=== PATIENT | female | born 1990 | race African-American/Black ===

== ENCOUNTER 2017-10-06 11:21 | Emergency (ER) | payer MEDICAID ==
[~2017-10-06] VITALS: Ht 157.5 cm; Wt 51.7 kg
[~2017-10-06 11:21] MED LIST: IRONTAB35 OR; PREN-96 OR
[2017-10-06 12:16] LABS: Basophils # (auto) 0 uL; Basophils % (auto) 0.4 % (0.0-2.0); Eosinophils # (auto) 0 uL; Eosinophils % (auto) 0.6 % (0.0-7.0); Hematocrit 36.5 % (36.0-46.0); Hemoglobin 12.3 g/dL (12.2-16.2); Lymphocytes # (auto) 1.3 uL; Lymphocytes % (auto) 17.3 % (10.0-50.0); Mean Corpuscular Hemoglobin 33.7 pg (28.0-32.0); Mean Corpuscular Hgb Conc. 33.7 g/dL (32.0-36.0); Mean Corpuscular Volume 100.1 fL (80.0-100.0); Monocytes # (auto) 0.4 uL; Monocytes % (auto) 5.4 % (0.0-12.0); Neutrophils # (auto) 5.6 uL; Neutrophils % (auto) 76.3 % (37.0-80.0); Nucleated Red Blood Cells % 0.2 %; Platelet Count (auto) 255 10^3/uL (140-450); Red Blood Cells 3.65 10^6/uL (4.0-5.20); Red Cell Distribution Width 13.2 % (11.8-14.3); White Blood Cell 7.3 10^3/uL (4.4-10.8)
[2017-10-06 12:42] LABS: Calcium 9.1 mg/dL (8.5-10.1); Potassium 3.6 mmol/L (3.5-5.1)
[2017-10-06 12:48] LABS: Urine Bacteria NONE SEEN /hpf (None Seen); Urine Blood Negative /uL (Negative); Urine Mucus FEW (None Seen); Urine Specific Gravity 1.032 (1.001-1.035); Urine WBC <1 /hpf (0 - 5)
[2017-10-06 12:51] LABS: Bilirubin, Total 0.4 mg/dL (0.2-1.0); Total Protein 7.5 g/dL (6.4-8.2)
[2017-10-06 13:12] VITALS: BP 107/71
== END 2017-10-06 13:26 | disposition home or self-care (01) ==
LOC: ER 11:21
DX: R10.32 Left lower quadrant pain (principal); R10.31 Right lower quadrant pain; R42 Dizziness and giddiness
CPT/HCPCS: 36415; 80053; 81001; 81025; 85025

== ENCOUNTER 2017-10-09 18:37 | Emergency (ER) | payer MEDICAID ==
[~2017-10-09] VITALS: Ht 157.5 cm; Wt 53.5 kg
[2017-10-09] MEDS ORDERED: IOHEXOL 300 MG/ML 100ML BOTTLE IJ ONE (18:57)
[2017-10-09 19:08] LABS: Basophils # (auto) 0 uL; Basophils % (auto) 0.7 % (0.0-2.0); Eosinophils # (auto) 0.1 uL; Lymphocytes # (auto) 2.6 uL; Neutrophils # (auto) 1.6 uL; White Blood Cell 4.7 10^3/uL (4.4-10.8)
[2017-10-09 19:11] LABS: Eosinophils % (auto) 2.1 % (0.0-7.0); Hematocrit 36.5 % (36.0-46.0); Hemoglobin 12.3 g/dL (12.2-16.2); Mean Corpuscular Hgb Conc. 33.6 g/dL (32.0-36.0); Mean Corpuscular Volume 101.2 fL (80.0-100.0); Monocytes # (auto) 0.3 uL; Monocytes % (auto) 7.2 % (0.0-12.0); Neutrophils % (auto) 34.8 % (37.0-80.0); Nucleated Red Blood Cells % 0.3 %; Platelet Count (auto) 272 10^3/uL (140-450); Red Cell Distribution Width 13.5 % (11.8-14.3)
[2017-10-09 19:17] LABS: Lymphocytes % (auto) 55.2 % (10.0-50.0)
[2017-10-09 19:27] LABS: Albumin 3.9 g/dL (3.4-5.0); BUN/Creatinine Ratio 26.2; Calcium 8.9 mg/dL (8.5-10.1); Potassium 3.9 mmol/L (3.5-5.1)
[2017-10-09 19:30] LABS: Bilirubin, Total 0.2 mg/dL (0.2-1.0); Total Protein 7.5 g/dL (6.4-8.2)
[2017-10-09 20:06] VITALS: BP 111/74
== END 2017-10-10 00:08 | disposition home or self-care (01) ==
LOC: ER 18:37
DX: R10.84 Generalized abdominal pain (principal); N93.9 Abnormal uterine and vaginal bleeding, unspecified
CPT/HCPCS: 36415; 74177; 80053; 85025; 99285; Q9967

== ENCOUNTER 2020-06-28 09:08 | Observation (INO) | payer MEDICAID ==
[~2020-06-28] VITALS: Ht 188 cm; Wt 70.3 kg
[2020-06-28] MEDS ORDERED: TERBUTALINE SULFATE 1 MG/ML 1ML VIAL SC SCH (10:15)
== END 2020-06-28 11:25 | disposition home or self-care (01) ==
LOC: LDRP 09:08
PROVIDERS: ADMIT Obstetrics & Gynecology; ATTEND Obstetrics & Gynecology
DX: O60.03 Preterm labor without delivery, third trimester (principal); Z3A.36 36 weeks gestation of pregnancy
CPT/HCPCS: 59025; 81002; 96372; G0378; J3105

== ENCOUNTER 2020-07-03 22:33 | Observation (INO) | payer MEDICAID ==
[~2020-07-03] VITALS: Ht 157.5 cm; Wt 72.6 kg
[2020-07-05] MEDS ORDERED: CEPH-37 PO (10:05)
== END 2020-07-04 00:15 | disposition home or self-care (01) ==
LOC: LDRP 22:33
PROVIDERS: ADMIT Obstetrics & Gynecology; ATTEND Obstetrics & Gynecology
DX: O62.9 Abnormality of forces of labor, unspecified (principal); O34.219 Maternal care for unspecified type scar from previous cesarean delivery; Z3A.37 37 weeks gestation of pregnancy
CPT/HCPCS: 59025; 81002; 96360; 96361; G0378

== ENCOUNTER 2020-07-05 09:43 | Observation (INO) | payer MEDICAID ==
[2020-07-05] MEDS ORDERED: CEPH-37 PO (10:05)
[2020-07-05] MEDS ORDERED: NIFEdipine 10 MG CAP PO ONE (11:00)
== END 2020-07-05 11:55 | disposition home or self-care (01) ==
LOC: LDRP 09:43
PROVIDERS: ADMIT Obstetrics & Gynecology; ATTEND Obstetrics & Gynecology
DX: O60.03 Preterm labor without delivery, third trimester (principal); O34.219 Maternal care for unspecified type scar from previous cesarean delivery; Z3A.37 37 weeks gestation of pregnancy
CPT/HCPCS: 59025; 81002; G0378

== ENCOUNTER 2020-07-10 00:35 | Inpatient (IN) | payer MEDICAID ==
[2020-07-10] VITALS (24 sets, daily range): BP systolic 65–147; BP diastolic 43–66
[~2020-07-10] VITALS: Ht 157.5 cm; Wt 72.6 kg
[~2020-07-10 00:35] MED LIST changes: +CEPH-37 PO
[2020-07-10] MEDS ORDERED: TERBUTALINE SULFATE 1 MG/ML 1ML VIAL SC ONE (00:58)
[2020-07-10] MEDS ORDERED: TERBUTALINE SULFATE 1 MG/ML 1ML VIAL SC SCH (01:00)
[2020-07-10] MEDS ORDERED: LACTATED RINGER'S 1,000 ML IV ONE ×2 (01:15→10:45)
[2020-07-10 02:10] LABS: Albumin 2.5 g/dL (3.4-5.0); BUN/Creatinine Ratio 15.3; Calcium 8.1 mg/dL (8.5-10.1); Potassium 3.2 mmol/L (3.5-5.1)
[2020-07-10 02:13] LABS: Bilirubin, Total 0.2 mg/dL (0.2-1.0); Total Protein 6.2 g/dL (6.4-8.2)
[2020-07-10 02:29] LABS: Basophils # (auto) 0 10 ^3/uL (0-0.2); Basophils % (auto) 0.1 % (0.0-2.0); Eosinophils # (auto) 0 10 ^3/uL (0-0.8); Eosinophils % (auto) 0.4 % (0.0-7.0); Hematocrit 32.2 % (36.0-46.0); Hemoglobin 10.4 g/dL (12.2-16.2); Lymphocytes # (auto) 2.6 10 ^3/uL (0.4-5.4); Lymphocytes % (auto) 36.8 % (10.0-50.0); Mean Corpuscular Hemoglobin 28.8 pg (28.0-32.0); Mean Corpuscular Hgb Conc. 32.4 g/dL (32.0-36.0); Mean Corpuscular Volume 88.8 fL (80.0-100.0); Monocytes # (auto) 0.5 10 ^3/uL (0-1.3); Monocytes % (auto) 7.6 % (0.0-12.0); Neutrophils # (auto) 3.8 10 ^3/uL (1.6-8.6); Neutrophils % (auto) 55.1 % (37.0-80.0); Nucleated Red Blood Cells % 0.1 %; Platelet Count (auto) 207 10^3/uL (140-450); Red Blood Cells 3.63 10^6/uL (4.0-5.20); Red Cell Distribution Width 15.7 % (11.8-14.3)
[2020-07-10 02:44] LABS: INR 0.91 (0.9-1.15); Partial Thromboplastin Time 23.6 sec (23.0-31.2)
[2020-07-10 03:54] LABS: Urine Bacteria FEW /hpf (None Seen); Urine Blood Negative /uL (Negative); Urine Mucus FEW (None Seen); Urine Specific Gravity 1.008 (1.001-1.035); Urine WBC 1 /hpf (0 - 5)
[2020-07-10] MEDS ORDERED: ceFAZolin 1GM/50ML 50 ML IV ONE (04:00)
[2020-07-10 04:11] LABS: Alcohol, Urine < 3.0 mg/dL (0-10); Amphetamine Screen, Urine NEGATIVE (NEGATIVE); Barbiturate Scree,Urine NEGATIVE (NEGATIVE); Benzodiazephine Screen, Urine NEGATIVE (NEGATIVE); Cannabinoid Screen, Urine NEGATIVE (NEGATIVE); Cocaine Screen, Urine NEGATIVE (NEGATIVE); Opiate Scree,Urine NEGATIVE (NEGATIVE); Phencyclidine Screen, Urine NEGATIVE (NEGATIVE)
[2020-07-10] MEDS ORDERED: SODIUM CITR/CITRIC ACID ORAL SOLN 30 ML PO ONE (04:15)
[2020-07-10] MEDS ORDERED: TETRACAINE 1% INJ 2 ML VIAL IJ ONE (05:36)
[2020-07-10] MEDS ORDERED: MORPHINE SULF(PF) 0.5MG/ML 10ML VIAL ONE (05:39)
[2020-07-10] MEDS ORDERED: ceFAZolin 1GM VL ONE (05:40)
[2020-07-10] MEDS ORDERED: ONDANSETRON HCL 4 MG/2 ML VIAL ONE ×2 (05:40→07:00)
[2020-07-10] MEDS ORDERED: GLYCOPYRROLATE 0.2 MG/ML 1ML VIAL ONE (05:40)
[2020-07-10] MEDS ORDERED: ePHEDrine SULFATE 50 MG/ML AMP ONE (05:40)
[2020-07-10] MEDS ORDERED: oxyTOCIN 10 UNIT/ML 10ML VIAL ONE (05:40)
[2020-07-10] MEDS ORDERED: fentaNYL CITRATE 100 MCG/2 ML VL ONE (05:40)
[2020-07-10] MEDS ORDERED: KETOROLAC TROMETH 30 MG/ML 1ML VIAL ONE (05:40)
[2020-07-10] MEDS ORDERED: PHENYLEPHRINE HCL 10 MG/ML VL ONE (05:40)
[2020-07-10] MEDS ORDERED: NALOXONE HCL 0.4 MG/ML VIAL IV PRN (07:00)
[2020-07-10] MEDS ORDERED: ONDANSETRON HCL 4 MG/2 ML VIAL IV PRN ×3 (07:00)
[2020-07-10] MEDS ORDERED: LACT. RINGERS/OXYTOCIN 20UNITS 1,000 ML IV SCH (07:00)
[2020-07-10] MEDS ORDERED: ceFAZolin 1GM/50ML 50 ML IV SCH ×2 (07:00→14:00)
[2020-07-10] MEDS ORDERED: DexAMETHasone SOD PHOS 10MG/1ML VIAL INJ IV PRN (07:00)
--- NOTE | 2020-07-10 07:45 | NUR ---
Post Op for LDRP: Received patient from PACU via bed to room 8B. Patient A/A/Ox4, abdominal binder and bilateral SCD's are in place, IV fluids placed on pump and infusing per order, incisional site dressing clean/dry/intact and Turcios Catheter to gravity draining clear yellow urine. Incentive Spirometer at bedside and instruction on proper use with return demonstration done by patient.
--- NOTE | 2020-07-10 08:00 | NUR ---
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
--- NOTE | 2020-07-10 10:00 | NUR ---
Report given to Delmy Maria RN on stable patient.
--- NOTE | 2020-07-10 10:02 | NUR ---
REPORT RECEIVED FOR JUNITO Akins RN
--- NOTE | 2020-07-10 10:40 | NUR ---
dr melgar given report on the pt updated with low BP 87/53, 95/56. patient requesting pain meds but morphine is ordered. asked dr melgar for different pain medication. orders received for Tylenol with Ofirmev adn 500 ml bolus of LR. orders into be implementation.
[2020-07-10] MEDS ORDERED: ACETAMINOPHEN IV 1000 MG/100ML (10MG/ML) IV ONE (10:45)
[2020-07-10] MEDS: LACTATED RINGER'S 1,000 ML IV SCH ×3 (10:46→17:15)
[2020-07-10] MEDS: MORPHINE SULFATE 4 MG/ML SYR/VIAL IV PRN ×2 (19:34→23:54)
[2020-07-10 20:39] LABS: Basophils # (auto) 0 10 ^3/uL (0-0.2); Basophils % (auto) 0.3 % (0.0-2.0); Eosinophils # (auto) 0.1 10 ^3/uL (0-0.8); Eosinophils % (auto) 0.7 % (0.0-7.0); Hemoglobin 8.5 g/dL (12.2-16.2); Lymphocytes # (auto) 1.4 10 ^3/uL (0.4-5.4); Lymphocytes % (auto) 18.7 % (10.0-50.0); Mean Corpuscular Hemoglobin 29.2 pg (28.0-32.0); Mean Corpuscular Hgb Conc. 32.8 g/dL (32.0-36.0); Mean Corpuscular Volume 89.1 fL (80.0-100.0); Monocytes # (auto) 0.7 10 ^3/uL (0-1.3); Monocytes % (auto) 9.9 % (0.0-12.0); Neutrophils # (auto) 5.1 10 ^3/uL (1.6-8.6); Neutrophils % (auto) 70.4 % (37.0-80.0); Platelet Count (auto) 149 10^3/uL (140-450); Red Blood Cells 2.92 10^6/uL (4.0-5.20); Red Cell Distribution Width 15.9 % (11.8-14.3); White Blood Cell 7.3 10^3/uL (4.4-10.8)
[2020-07-11] VITALS (11 sets, daily range): BP systolic 92–120; BP diastolic 50–68
[2020-07-11] MEDS: ceFAZolin 1GM/50ML 50 ML IV SCH ×2 (02:20→10:18)
--- NOTE | 2020-07-11 03:30 | NUR ---
Ma catheter dc'd Order to discontinue ma catheter. Ma dc'd with clean technique following deflation of balloon. Patient tolerated well with no complaints of pain. Continue care.
--- NOTE | 2020-07-11 03:45 | NUR ---
Ambulation: Patient OOB with standby assistance by RN. Patient ambulated with steady gait. P Clean gown provided and bed linen changed. Patient ambulated back to bed with steady gait and no distress noted.
[2020-07-11 04:06] LABS: RPR Non Reactive (Non Reactive)
[2020-07-11] MEDS: MORPHINE SULFATE 4 MG/ML SYR/VIAL IV PRN (04:25)
[2020-07-11 07:18] LABS: Basophils # (auto) 0 10 ^3/uL (0-0.2); Eosinophils # (auto) 0.1 10 ^3/uL (0-0.8); Hemoglobin 8.3 g/dL (12.2-16.2); Lymphocytes # (auto) 0.9 10 ^3/uL (0.4-5.4); Monocytes # (auto) 0.5 10 ^3/uL (0-1.3); Neutrophils % (auto) 79.6 % (37.0-80.0); Nucleated Red Blood Cells % 0.1 %; Platelet Count (auto) 163 10^3/uL (140-450)
[2020-07-11 07:22] LABS: Basophils % (auto) 0.4 % (0.0-2.0); Hematocrit 24.9 % (36.0-46.0); Lymphocytes % (auto) 12.2 % (10.0-50.0); Mean Corpuscular Hemoglobin 29.4 pg (28.0-32.0); Mean Corpuscular Hgb Conc. 33.2 g/dL (32.0-36.0); Mean Corpuscular Volume 88.4 fL (80.0-100.0); Monocytes % (auto) 6.8 % (0.0-12.0); Red Blood Cells 2.81 10^6/uL (4.0-5.20); White Blood Cell 7.5 10^3/uL (4.4-10.8)
[2020-07-11] MEDS ORDERED: HYDROcodone-ACET 5/325MG TAB PO PRN (07:30)
[2020-07-11] MEDS ORDERED: BISACODYL 10 MG RECT SUPP PR PRN (07:30)
[2020-07-11] MEDS: HYDROcodone-ACET 5/325MG TAB PO PRN ×4 (07:34→21:27)
[2020-07-11] MEDS ORDERED: POTASSIUM CHL 20 Meq TABLET PO ONE (10:00)
--- NOTE | 2020-07-11 10:10 | NUR ---
DR. ARMSTRONG AWARE PATIENT HGB 8. 3 MG/DL AND NEW ORDERS RECEIVED GIVE IRON TABS 325 BID .
[2020-07-11] MEDS: DOCUSATE SOD 100 MG CAP PO SCH ×2 (10:18→21:27)
[2020-07-11] MEDS: DOCUSATE CALCIUM 240 MG CAP PO SCH (10:18)
[2020-07-11] MEDS: IBUPROFEN 800 MG TAB PO PRN ×2 (10:18→18:02)
[2020-07-11] MEDS: FERROUS SULFATE 325 MG TAB PO SCH ×2 (10:20→21:27)
[2020-07-11] MEDS: SIMETHICONE 80 MG CHEWABLE TABLET PO SCH ×3 (14:05→22:00)
[2020-07-12] MEDS: HYDROcodone-ACET 5/325MG TAB PO PRN ×5 (02:25→21:45)
[2020-07-12 03:00] VITALS: BP 105/68
[2020-07-12] MEDS: IBUPROFEN 800 MG TAB PO PRN ×2 (05:42→14:32)
[2020-07-12] MEDS: SIMETHICONE 80 MG CHEWABLE TABLET PO SCH ×4 (06:00→21:45)
[2020-07-12 07:20] VITALS: BP 114/68
[2020-07-12] MEDS: DOCUSATE SOD 100 MG CAP PO SCH ×2 (10:01→21:45)
[2020-07-12] MEDS: FERROUS SULFATE 325 MG TAB PO SCH ×2 (10:01→21:45)
[2020-07-12] MEDS: DOCUSATE CALCIUM 240 MG CAP PO SCH (10:01)
[2020-07-12 10:52] VITALS: BP 111/66
--- NOTE | 2020-07-12 13:10 | NUR ---
. REPORT GIVEN TO Yasmin PIERRE RN
[2020-07-12 15:30] VITALS: BP 114/75
[2020-07-12 19:25] VITALS: BP 109/61
[2020-07-12 22:50] VITALS: BP 109/62
[2020-07-13] MEDS: IBUPROFEN 800 MG TAB PO PRN (01:47)
[2020-07-13 03:26] VITALS: BP 106/70
[2020-07-13] MEDS: SIMETHICONE 80 MG CHEWABLE TABLET PO SCH (05:57)
[2020-07-13] MEDS: HYDROcodone-ACET 5/325MG TAB PO PRN (05:57)
[2020-07-13 07:30] VITALS: BP 111/62
--- NOTE | 2020-07-13 07:55 | NUR ---
DR. GILLESPIE NOTIFIED OF 13% WEIGHT LOSS Orders received to have pt supplement. D/C orders still obtained.
--- NOTE | 2020-07-13 07:56 | NUR ---
Patients educated on supplementation of formula Explained the benefits and importance of supplementing at this time due to babies weight loss. Father and mother verbalized understanding, formula provided.
--- NOTE | 2020-07-13 07:59 | NUR ---
Discharge: Discharge instructions given as ordered. Pt encouraged to follow up with [facility] as instructed. All questions and concerns addressed. Patient verbalized understanding. Medication reconciliation completed and copy given to patient. All required/requested vaccines given and copies of vaccinations given to patient. Patient encouraged to prepare to depart unit.
--- NOTE | 2020-07-13 09:25 | NUR ---
Discharge: Patient taken to vehicle via ambulating with all personal belongings, accompanied by staff and family member. No distress noted at time of departure, no adverse changes in status since initial assessment.
== END 2020-07-13 09:25 | disposition home or self-care (01) | DRG 540 ==
LOC: LDRP 00:35 → OBSVTOIN 00:35 → LDRP 10:28
PROVIDERS: ADMIT Obstetrics & Gynecology; ATTEND Obstetrics & Gynecology
PROC: 10D00Z1 Extraction of Products of Conception, Low, Open Approach (ICD-10-PCS; principal; 2020-07-10 05:53)
DX: O34.219 Maternal care for unspecified type scar from previous cesarean delivery (principal); Z20.828 Contact with and (suspected) exposure to other viral communicable diseases; Z3A.39 39 weeks gestation of pregnancy; Z37.0 Single live birth
CPT/HCPCS: 36415; 59025; 80053; 80307; 81001; 81002; 84112; 85025; 85610; 85730; 86592; 86850; 86900; 86901; 87426; 94760; 94762; 96360; 96361; 96372; 96374; 96375; G0378; J0131; J0690; J1885; J2405; J2590

== ENCOUNTER → 2021-01-10 | Emergency (ER) | payer MEDICAID ==
[~2021-01-10] VITALS: Ht 157.5 cm; Wt 59.0 kg
[~2021-01-10] MED LIST changes: -CEPH-37 PO
[2021-01-10 18:29] VITALS: BP 98/77
== END | disposition home or self-care (01) ==
LOC: ER 18:21
DX: S39.012A Strain of muscle, fascia and tendon of lower back, initial encounter (principal); S50.12XA Contusion of left forearm, initial encounter; V43.52XA Car driver injured in collision with other type car in traffic accident, initial encounter; Y93.89 Activity, other specified; Y92.410 Unspecified street and highway as the place of occurrence of the external cause; Y99.8 Other external cause status
CPT/HCPCS: 81025

== ENCOUNTER 2022-01-23 09:26 | Observation (INO) | payer MEDICAID ==
[2022-03-26] MEDS ORDERED: NIF10C PO (11:42)
== END 2022-03-29 10:37 | disposition home or self-care (01) ==
LOC: UNDOADMOB 09:26 → LDRP 09:26
PROVIDERS: ADMIT Obstetrics & Gynecology; ATTEND Obstetrics & Gynecology
DX: O36.5930 Maternal care for other known or suspected poor fetal growth, third trimester, not applicable or unspecified (principal); O21.2 Late vomiting of pregnancy; Z3A.35 35 weeks gestation of pregnancy
CPT/HCPCS: 59025; 76818; 81002; 94760; G0378

== ENCOUNTER 2022-03-26 09:52 | Observation (INO) | payer MEDICAID ==
[2022-03-26] MEDS ORDERED: NIFEdipine 10 MG CAP PO SCH (11:00)
[2022-03-26] MEDS ORDERED: NIF10C PO (11:42)
== END 2022-03-26 13:05 | disposition home or self-care (01) ==
LOC: UNDOADMOB 09:52 → LDRP 09:52 → UNDODISOB 13:05
PROVIDERS: ADMIT Obstetrics & Gynecology; ATTEND Obstetrics & Gynecology
DX: O36.5930 Maternal care for other known or suspected poor fetal growth, third trimester, not applicable or unspecified (principal); O60.03 Preterm labor without delivery, third trimester; Z3A.35 35 weeks gestation of pregnancy
CPT/HCPCS: 59025; 76818; 81002; 94760; G0378

== ENCOUNTER 2022-04-02 09:51 | Observation (INO) | payer MEDICAID ==
[~2022-04-02 09:51] MED LIST changes: +NIF10C PO
== END 2022-04-02 11:26 | disposition home or self-care (01) ==
LOC: LDRP 09:51 → UNDOADMOB 09:51 → LDRP 10:42
PROVIDERS: ADMIT Obstetrics & Gynecology; ATTEND Obstetrics & Gynecology
DX: O60.03 Preterm labor without delivery, third trimester (principal); O36.5930 Maternal care for other known or suspected poor fetal growth, third trimester, not applicable or unspecified; Z3A.36 36 weeks gestation of pregnancy
CPT/HCPCS: 59025; 76818; 81002; 94760; G0378

== ENCOUNTER 2022-04-06 09:22 | Observation (INO) | payer MEDICAID ==
[2022-04-06] MEDS ORDERED: LACTATED RINGER'S 1,000 ML IV ONE (11:45)
[2022-04-06] MEDS ORDERED: NIFEdipine 10 MG CAP PO ONE (13:30)
== END 2022-04-06 16:45 | disposition home or self-care (01) ==
LOC: LDRP 09:22
PROVIDERS: ADMIT Obstetrics & Gynecology Obstetrics; ATTEND Obstetrics & Gynecology Obstetrics
DX: O36.5930 Maternal care for other known or suspected poor fetal growth, third trimester, not applicable or unspecified (principal); O62.9 Abnormality of forces of labor, unspecified; O60.03 Preterm labor without delivery, third trimester; Z98.891 History of uterine scar from previous surgery; Z3A.36 36 weeks gestation of pregnancy
CPT/HCPCS: 59025; 76818; 81002; 94760; 96360; G0378

== ENCOUNTER 2022-04-12 17:45 | Inpatient (IN) | payer MEDICAID ==
[~2022-04-12] VITALS: Ht 30.5 cm; Wt 0.5 kg
[2022-04-12] MEDS ORDERED: LACTATED RINGER'S 1,000 ML IV ONE ×2 (19:45→23:45)
[2022-04-12] MEDS ORDERED: TERBUTALINE SULFATE 1 MG/ML 1ML VIAL SC SCH (19:45)
[2022-04-12] MEDS ORDERED: NIFEdipine 10 MG CAP PO ONE (21:15)
[2022-04-12] MEDS ORDERED: ALUM & MAG HYDROX-SIMETH LIQ(MAALOX) 30 ML PO ONE (21:15)
[2022-04-12] MEDS ORDERED: ceFAZolin 1GM/50ML 50 ML IV ONE (23:45)
[2022-04-12 23:57] LABS: Basophils # (auto) 0 10 ^3/uL (0-0.2); Eosinophils # (auto) 0.2 10 ^3/uL (0-0.8); Hemoglobin 8.8 g/dL (12.2-16.2); Monocytes # (auto) 0.5 10 ^3/uL (0-1.3)
[2022-04-12] MEDS: LACTATED RINGER'S 1,000 ML IV SCH (23:57)
[2022-04-13] VITALS (10 sets, daily range): BP systolic 80–119; BP diastolic 34–76
[2022-04-13] LABS: Basophils % (auto) 0.3 % (0.0-2.0); Hematocrit 27.7 % (36.0-46.0); Lymphocytes # (auto) 2.2 10 ^3/uL (0.4-5.4); Lymphocytes % (auto) 32.4 % (10.0-50.0); Mean Corpuscular Hemoglobin 26.2 pg (28.0-32.0); Mean Corpuscular Hgb Conc. 31.7 g/dL (32.0-36.0); Mean Corpuscular Volume 82.7 fL (80.0-100.0); Neutrophils # (auto) 3.9 10 ^3/uL (1.6-8.6); Neutrophils % (auto) 57.3 % (37.0-80.0); Nucleated Red Blood Cells % 0.1 %; Red Blood Cells 3.35 10^6/uL (4.0-5.20); Red Cell Distribution Width 17.4 % (11.8-14.3); White Blood Cell 6.8 10^3/uL (4.4-10.8)
[2022-04-13 00:18] LABS: INR 0.89 (0.9-1.15); Partial Thromboplastin Time 25.8 sec (24.6-33.4)
[2022-04-13 00:19] LABS: Albumin 2.4 g/dL (3.4-5.0); Potassium 3.7 mmol/L (3.5-5.1)
[2022-04-13 00:21] LABS: BUN/Creatinine Ratio 14.6
[2022-04-13 00:24] LABS: Bilirubin, Total 0.4 mg/dL (0.2-1.0)
[2022-04-13 02:02] LABS: Urine Bacteria NONE SEEN /hpf (None Seen); Urine Blood Negative /uL (Negative); Urine Mucus FEW (None Seen); Urine Specific Gravity 1.019 (1.001-1.035); Urine WBC 1 /hpf (0 - 5)
[2022-04-13 02:18] LABS: Alcohol, Urine < 3.0 mg/dL (0-10); Amphetamine Screen, Urine NEGATIVE (NEGATIVE); Barbiturate Scree,Urine NEGATIVE (NEGATIVE); Benzodiazephine Screen, Urine NEGATIVE (NEGATIVE); Cannabinoid Screen, Urine NEGATIVE (NEGATIVE); Cocaine Screen, Urine NEGATIVE (NEGATIVE); Opiate Scree,Urine NEGATIVE (NEGATIVE); Phencyclidine Screen, Urine NEGATIVE (NEGATIVE)
[2022-04-13] MEDS: LACTATED RINGER'S 1,000 ML IV SCH ×2 (08:26→12:58)
[2022-04-13] MEDS ORDERED: DexAMETHasone SOD PHOS 10MG/1ML VIAL INJ ONE (09:21)
[2022-04-13] MEDS ORDERED: HYDROmorphone HCL 2 MG/ML VL/or syr IV PRN (10:15)
[2022-04-13] MEDS ORDERED: ePHEDrine SULFATE 50 MG/ML AMP IV PRN (10:15)
[2022-04-13] MEDS ORDERED: METOCLOPRAMIDE HCL 5MG/ml INJ 2ml VIAL IV PRN (10:15)
[2022-04-13] MEDS: ACETAMINOPHEN IV 1000 MG/100ML (10MG/ML) IV SCH ×2 (12:59→21:08)
[2022-04-13] MEDS ORDERED: KETOROLAC TROMETH 30 MG/ML 1ML VIAL IV ONE (14:15)
[2022-04-13] MEDS ORDERED: ONDANSETRON HCL 4 MG/2 ML VIAL IV PRN (17:45)
[2022-04-13 17:59] LABS: Basophils # (auto) 0 10 ^3/uL (0-0.2); Basophils % (auto) 0.2 % (0.0-2.0); Eosinophils # (auto) 0 10 ^3/uL (0-0.8); Hemoglobin 7.6 g/dL (12.2-16.2); Lymphocytes # (auto) 0.9 10 ^3/uL (0.4-5.4); Monocytes # (auto) 0.3 10 ^3/uL (0-1.3); Monocytes % (auto) 2.5 % (0.0-12.0); Neutrophils # (auto) 10.8 10 ^3/uL (1.6-8.6)
[2022-04-13 18:01] LABS: Hematocrit 24.8 % (36.0-46.0); Lymphocytes % (auto) 7.6 % (10.0-50.0); Mean Corpuscular Hemoglobin 25.6 pg (28.0-32.0); Mean Corpuscular Hgb Conc. 30.7 g/dL (32.0-36.0); Mean Corpuscular Volume 83.4 fL (80.0-100.0); Neutrophils % (auto) 89.7 % (37.0-80.0); Nucleated Red Blood Cells % 0.1 %; Red Blood Cells 2.97 10^6/uL (4.0-5.20); Red Cell Distribution Width 17.1 % (11.8-14.3); White Blood Cell 12.1 10^3/uL (4.4-10.8)
[2022-04-13] MEDS: ceFAZolin 1GM/50ML 50 ML IV SCH (18:05)
[2022-04-13] MEDS ORDERED: GUM (CHEWING) 1 GUM CHEW CHEW ONE (19:45)
[2022-04-14] MEDS: LACTATED RINGER'S 1,000 ML IV SCH (01:30)
[2022-04-14] MEDS: ceFAZolin 1GM/50ML 50 ML IV SCH ×2 (01:39→10:33)
[2022-04-14 03:00] VITALS: BP 101/70
[2022-04-14] MEDS ORDERED: KETOROLAC TROMETH 30 MG/ML 1ML VIAL IV ONE (03:00)
[2022-04-14] MEDS: ACETAMINOPHEN IV 1000 MG/100ML (10MG/ML) IV SCH (06:13)
[2022-04-14 07:00] VITALS: BP 95/66
[2022-04-14] MEDS ORDERED: DOCU-94 PO (07:10)
[2022-04-14] MEDS ORDERED: HYDR-4902 PO (07:10)
[2022-04-14] MEDS ORDERED: IBUP800T27 PO (07:10)
[2022-04-14 07:34] LABS: Basophils # (auto) 0 10 ^3/uL (0-0.2); Basophils % (auto) 0.2 % (0.0-2.0); Eosinophils # (auto) 0 10 ^3/uL (0-0.8); Eosinophils % (auto) 0.2 % (0.0-7.0); Lymphocytes # (auto) 1.6 10 ^3/uL (0.4-5.4); Nucleated Red Blood Cells % 0.1 %; White Blood Cell 10.3 10^3/uL (4.4-10.8)
[2022-04-14 07:36] LABS: Hematocrit 20.1 % (36.0-46.0); Lymphocytes % (auto) 15.2 % (10.0-50.0); Mean Corpuscular Hemoglobin 26.9 pg (28.0-32.0); Mean Corpuscular Hgb Conc. 32.2 g/dL (32.0-36.0); Mean Corpuscular Volume 83.6 fL (80.0-100.0); Monocytes # (auto) 1.1 10 ^3/uL (0-1.3); Monocytes % (auto) 10.4 % (0.0-12.0); Neutrophils # (auto) 7.6 10 ^3/uL (1.6-8.6); Red Blood Cells 2.41 10^6/uL (4.0-5.20)
[2022-04-14 07:47] LABS: Hemoglobin 6.5 g/dL (12.2-16.2)
[2022-04-14] MEDS ORDERED: BISACODYL 10 MG RECT SUPP PR PRN (08:00)
[2022-04-14 08:06] LABS: RPR Non Reactive (Non Reactive)
[2022-04-14] MEDS: HYDROcodone-ACET 5/325MG TAB PO PRN ×3 (10:33→22:07)
[2022-04-14] MEDS: DOCUSATE SOD 100 MG CAP PO SCH ×2 (10:34→22:05)
[2022-04-14] MEDS: DOCUSATE CALCIUM 240 MG CAP PO SCH (10:34)
[2022-04-14] MEDS: FERROUS SULFATE 325mg EC TAB PO SCH ×2 (10:35→22:05)
[2022-04-14 11:00] VITALS: BP 99/50
[2022-04-14 15:00] VITALS: BP 101/50
[2022-04-14] MEDS: SIMETHICONE 80 MG CHEWABLE TABLET PO SCH ×3 (16:01→22:05)
[2022-04-14] MEDS: IBUPROFEN 800 MG TAB PO PRN (18:43)
[2022-04-14 19:30] VITALS: BP 104/67
[2022-04-14 22:11] LABS: Basophils # (auto) 0 10 ^3/uL (0-0.2); Mean Corpuscular Hemoglobin 26.4 pg (28.0-32.0); Monocytes # (auto) 0.7 10 ^3/uL (0-1.3); Red Blood Cells 2.44 10^6/uL (4.0-5.20); White Blood Cell 8.3 10^3/uL (4.4-10.8)
[2022-04-14 22:14] LABS: Basophils % (auto) 0.3 % (0.0-2.0); Eosinophils # (auto) 0.1 10 ^3/uL (0-0.8); Eosinophils % (auto) 0.7 % (0.0-7.0); Hematocrit 20.3 % (36.0-46.0); Lymphocytes % (auto) 24.4 % (10.0-50.0); Mean Corpuscular Hgb Conc. 31.7 g/dL (32.0-36.0); Mean Corpuscular Volume 83.4 fL (80.0-100.0); Monocytes % (auto) 8.1 % (0.0-12.0); Neutrophils # (auto) 5.5 10 ^3/uL (1.6-8.6); Neutrophils % (auto) 66.5 % (37.0-80.0); Nucleated Red Blood Cells % 0.2 %
[2022-04-14 22:46] LABS: Hemoglobin 6.4 g/dL (12.2-16.2)
[2022-04-14 23:00] VITALS: BP 98/63
[2022-04-15 03:00] VITALS: BP 99/69
[2022-04-15] MEDS: IBUPROFEN 800 MG TAB PO PRN ×2 (04:34→12:51)
[2022-04-15] MEDS: SIMETHICONE 80 MG CHEWABLE TABLET PO SCH ×2 (06:23→11:43)
[2022-04-15 07:00] VITALS: BP 89/51
[2022-04-15] MEDS: HYDROcodone-ACET 5/325MG TAB PO PRN (07:06)
[2022-04-15] MEDS: DOCUSATE SOD 100 MG CAP PO SCH (09:43)
[2022-04-15] MEDS: DOCUSATE CALCIUM 240 MG CAP PO SCH (09:43)
[2022-04-15] MEDS: FERROUS SULFATE 325mg EC TAB PO SCH (09:43)
[2022-04-15 11:00] VITALS: BP 94/58
== END 2022-04-15 14:37 | disposition home or self-care (01) | DRG 540 ==
LOC: LDRP 17:45 → OBSVTOIN 23:34 → LDRP 04-13 13:30
PROVIDERS: ADMIT Obstetrics & Gynecology; ATTEND Obstetrics & Gynecology
PROC: 10D00Z1 Extraction of Products of Conception, Low, Open Approach (ICD-10-PCS; principal; 2022-04-13 08:37)
DX: O34.211 Maternal care for low transverse scar from previous cesarean delivery (principal); Z20.822 Contact with and (suspected) exposure to COVID-19; Z37.0 Single live birth; Z79.899 Other long term (current) drug therapy; Z3A.37 37 weeks gestation of pregnancy
CPT/HCPCS: 36415; 59025; 76818; 80053; 80307; 81001; 81002; 85025; 85610; 85730; 86592; 86850; 86900; 86901; 86920; 94760; 96360; 96361; 96365; 96366; 96374; G0378; J0131; J0690; J1100; J1885